=== PATIENT | male | born 1975 | race African-American/Black ===

== ENCOUNTER → 2018-02-09 | Outpatient (CLI) | payer OTHER | LOC: OD 12:13 | PROVIDERS: ATTEND Internal Medicine | DX: E26.01 Conn's syndrome (principal) | CPT/HCPCS: 36415; 82088; 82382; 84244 ==

== ENCOUNTER → 2019-12-29 | Outpatient (CLI) | payer SELFPAY ==
[2019-12-29 12:51] LABS: ABSOLUTE EOSINOPHILS # (AUTO) 0.1 10^3/uL (0.0-0.6); ABSOLUTE LYMPHOCYTES (AUTO) 1.4 10^3/uL (0.5-4.7); ABSOLUTE MONOCYTES (AUTO) 0.8 10^3/uL (0.1-1.4); ABSOLUTE NEUT (AUTO) 9.3 10^3/uL (1.7-8.2); BASOPHILS % (AUTO) 0.4 % (0-2); EOSINOPHILS % (AUTO) 0.5 % (0-6); HEMATOCRIT 40.5 % (37.9-51.0); HEMOGLOBIN 13.3 g/dL (13.5-17.0); MEAN CORPUSCULAR HEMOGLOBIN 25.9 pg (27.0-33.4); MEAN CORPUSCULAR HGB CONC 32.7 g/dL (32.0-36.0); MEAN CORPUSCULAR VOLUME 79 fl (80-97); MONOCYTES % (AUTO) 6.6 % (3-13); PLATELET COUNT 313 10^3/uL (150-450); RED BLOOD COUNT 5.12 10^6/uL (4.35-5.55); RED CELL DISTRIBUTION WIDTH 14.8 % (11.5-14.0); SEGMENTED NEUTROPHILS % (AUTO) 80.5 % (42-78); TOTAL CELLS COUNTED % (AUTO) 100 %; WHITE BLOOD COUNT 11.5 10^3/uL (4.0-10.5)
[2019-12-29 13:00] LABS: APPEARANCE,URINE CLEAR; BILIRUBIN,URINE NEGATIVE (NEGATIVE); COLOR,URINE YELLOW; GLUCOSE, URINE NEGATIVE (NEGATIVE); KETONES,URINE NEGATIVE (NEGATIVE); LEUKOCYTE ESTERASE,URINE NEGATIVE (NEGATIVE); NITRITE,URINE NEGATIVE (NEGATIVE); PROTEIN,URINE 30 mg/dL (NEGATIVE); URINE SPECIFIC GRAVITY 1.011; UROBILINOGEN,URINE NEGATIVE mg/dL (<2.0)
[2019-12-29 13:12] LABS: ALKALINE PHOSPHATASE 80 U/L (38-126); ANION GAP 16 (5-19); ASPARTATE AMINO TRANSFERASE 20 U/L (17-59); BILIRUBIN,DIRECT 0.4 mg/dL (0.0-0.4); BILIRUBIN,TOTAL 0.5 mg/dL (0.2-1.3); BLOOD UREA NITROGEN 49 mg/dL (7-20); CALCIUM 10.5 mg/dL (8.4-10.2); CARBON DIOXIDE 21 mmol/L (22-30); CHLORIDE 103 mmol/L (98-107); GLUCOSE 116 mg/dL (75-110); TOTAL PROTEIN 8.9 g/dL (6.3-8.2); TRIGLYCERIDES 224 mg/dL (<150); URIC ACID 11.2 mg/dL (3.5-8.5)
[2019-12-29 13:23] LABS: DIRECT LDL 195 mg/dL (<100)
[2019-12-29 13:27] LABS: CHOLESTEROL 327.23 mg/dL (0-200); VLDL CHOLESTEROL 44.8 mg/dL (10-31)
[2019-12-29 13:33] LABS: POTASSIUM 6.3 mmol/L (3.6-5.0)
[2019-12-29 13:38] LABS: UR PRO/CREAT RATIO RESULT 0.3 mg/mg (0.0-0.2); URINE CREATININE 141.4 mg/dL (22-328); URINE PROTEIN 38.5 mg/dL (<12)
[2019-12-29 13:44] LABS: FREE T4 (FREE THYROXINE) 1.01 ng/dL (0.78-2.19)
[2019-12-29 13:58] LABS: THYROID STIMULATING HORMONE 1.04 uIU/mL (0.47-4.68)
[2019-12-30 12:37] LABS: CREATININE URINE 135.4 mg/dL (Not Estab.); MICROALBUMIN URINE 182.3 ug/mL (Not Estab.)
== END ==
LOC: OD 10:47
PROVIDERS: ATTEND Internal Medicine
DX: E11.22 Type 2 diabetes mellitus with diabetic chronic kidney disease (principal)
CPT/HCPCS: 36415; 80053; 80061; 81001; 82043; 82570; 83036; 84156; 84439; 84443; 84550; 85025